=== PATIENT | male | born 1980 | race Hispanic/Latino ===

== ENCOUNTER 2016-05-26 15:00 | Emergency (ER) | payer SELFPAY ==
[2016-05-26] MEDS ORDERED: TYLENOL ONE (16:38)
[2016-05-26] MEDS ORDERED: TYLENOL PO ONE ×2 (16:42→22:03)
[2016-05-26] MEDS ORDERED: TORADOL IV ONE (20:59)
[2016-05-26] MEDS ORDERED: ZOFRAN IV ONE (21:11)
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
[2016-05-26 21:32] LABS: Hematocrit 46.2 % (35.5-45.6); Hemoglobin 15.3 gm/dl (11.8-15.2); Mean Corpuscular HGB Conc 33 % (32-34); Mean Corpuscular Hemoglobin 29 pg (28-32); Mean Corpuscular Volume 87 fl (84-94); Platelet Count 167 K/mm3 (140-440); Red Blood Count 5.34 M/mm3 (3.65-5.03); Red Cell Distribution Width 14.6 % (13.2-15.2); White Blood Count 5.8 K/mm3 (4.5-11.0)
[2016-05-26 21:48] LABS: Blood Urea Nitrogen 9 mg/dL (9-20); Calcium 9.2 mg/dL (8.4-10.2); Carbon Dioxide 25 mmol/L (22-30); Chloride 92.7 mmol/L (98-107); Glucose 110 mg/dL (75-100); Potassium 4.1 mmol/L (3.6-5.0); Sodium 136 mmol/L (137-145)
[2016-05-26 21:54] LABS: Anion Gap 22 mmol/L
[2016-05-26] MEDS ORDERED: MORPHINE IV ONE (22:19)
[2016-05-26 22:43] LABS: Basophils % (Manual) 0 % (0.0-1.8); Blastocytes % (Manual) 0 %
[2016-05-26 22:44] LABS: Diff Status Complete; Ovalocytes Few; Platelet Estimate Consistent w Auto
[2016-05-27 00:53] VITALS: BP 141/98
--- NOTE | 2016-05-27 07:56 | XRay Report ---
ROUTINE CHEST, TWO VIEWS: HISTORY: Cough. The trachea, heart, mediastinal contour, lung navarro and bony thorax are unremarkable. IMPRESSION: Unremarkable chest x-ray. No significant change since 07/27/15.
== END 2016-05-27 00:56 | disposition home or self-care (01) ==
LOC: ED 15:00
DX: J11.1 Influenza due to unidentified influenza virus with other respiratory manifestations (principal); M79.1 Myalgia; R11.2 Nausea with vomiting, unspecified; I10 Essential (primary) hypertension
CPT/HCPCS: 36415; 71020; 80048; 85007; 85025; 87400; 96374; 96375; 99284; J1885; J2270; J2405